=== PATIENT | male | born 1955 | race Caucasian/White ===

== ENCOUNTER 2021-10-02 01:00 | Emergency (ER) | payer OTHER, MEDICARE ==
[2021-10-02] MEDS ORDERED: Cyclobenzaprine 10 MG Tab PO ONE (01:01)
[2021-10-02] MEDS ORDERED: Bacitracin Oint 1 GM U/D Packet TOP ONE (01:18)
[2021-10-02] MEDS ORDERED: Lidocaine 1% with EPINEPHrine 1:100,000 20 ML MDV INJECT ONE (01:18)
[2021-10-02 01:39] LABS: CHLORIDE,CL 100 mmol/L (98-107)
[2021-10-02 01:59] LABS: ANION GAP 16.6 mEq/L (7-13); SODIUM,NA 137 mmol/L (138-146)
[2021-10-02] MEDS ORDERED: Acetaminophen 325 MG Tab PO ONE (02:18)
[2021-10-02] MEDS ORDERED: Cyclobenzaprine 10 MG Tab ONE (02:42)
[2021-10-02] MEDS ORDERED: Acetaminophen 325 MG Tab ONE (02:42)
== END 2021-10-02 03:03 | disposition home or self-care (01) ==
LOC: DL.ED 01:00
DX: S01.81XA Laceration without foreign body of other part of head, initial encounter (principal); S40.021A Contusion of right upper arm, initial encounter; V89.2XXA Person injured in unspecified motor-vehicle accident, traffic, initial encounter
CPT/HCPCS: 12011; 36415; 70450; 71045; 72125; 73060-RT; 80053; 84484; 85025; 85610; 99284; 99284-25; A9270-GY